=== PATIENT | male | born 1945 | race Caucasian/White ===

== ENCOUNTER → 2019-02-07 | Day surgery (SDC) | payer MEDICARE, BC | LOC: MSO 08:52 | DX: H25.11 Age-related nuclear cataract, right eye (principal); Z79.02 Long term (current) use of antithrombotics/antiplatelets; Z88.6 Allergy status to analgesic agent; Z91.018 Allergy to other foods; Z87.891 Personal history of nicotine dependence | CPT/HCPCS: 00142; J0171; J2250; J3010; V2632 ==

== ENCOUNTER → 2019-03-15 | Day surgery (SDC) | payer MEDICARE, BC | LOC: MSO 09:57 | DX: H25.12 Age-related nuclear cataract, left eye (principal); Z88.6 Allergy status to analgesic agent; Z91.018 Allergy to other foods; Z90.49 Acquired absence of other specified parts of digestive tract; Z79.01 Long term (current) use of anticoagulants; Z87.891 Personal history of nicotine dependence | CPT/HCPCS: 00142; J0171; J2250; V2632 ==